=== PATIENT | male | born 1950 | race Caucasian/White ===

== ENCOUNTER → 2018-07-08 | Outpatient (CLI) | payer MEDICARE, BC ==
--- NOTE | 2018-07-08 10:52 | PCVCIMAG ---
EXAM: AORTOILIAC DUPLEX INDICATION: Peripheral arterial disease FINDINGS: AORTA: Suprarenal aorta measures maximum diameter of 3.0 cm. There is not a fusiform infrarenal aortic aneurysm. The infrarenal aorta measures maximum diameter of 2.4 cm. No aortic stenosis. RIGHT COMMON ILIAC ARTERY: Maximum diameter is 1.8 cm. No significant stenosis. RIGHT EXTERNAL ILIAC ARTERY: No significant stenosis. LEFT COMMON ILIAC ARTERY: Maximum diameter is 1.7 cm. No significant stenosis. LEFT EXTERNAL ILIAC ARTERY: No significant stenosis. IMPRESSION: No abdominal aortic aneurysm. No aortoiliac stenosis seen. LOC:OFFICE
--- NOTE | 2018-07-08 13:02 | PCVCIMAG ---
APPROVED REPORT Study performed: 07/08/2018 11:33:13 Exam: Stress Echocardiogram Indication: Hypertension, Hyperlipidemia, Abnormal calcilum score Patient Location: Echo lab Stress Nurse: Yue Ontiveros RN Status: routine Ht: 6 ft 2 in HR: 61 bpm BP: 140/100 mmHg Rhythm: NSR Medical History Medical History: Hyperlipidemia, HTN, Abnormal calcium score Procedure The patient underwent an Exercise Stress Test using the Fercho Protocol. Blood pressure, heart rate, and EKG were monitored. An Echocardiogram was performed by master technician in four stages in quad fashion. At peak stress, four selected images were obtained and placed side by side with resting images for comparison. Stress Test Details Stress Test: Exercise stress testing was performed using a Fercho protocol. HR Resting HR: 61 bpmMax Heart Rate (APMHR): 150 bpm Max HR Achieved: 151 bpmTarget HR (85% APMHR): 127 bpm % of APMHR: 100 Recovery HR: 93 bpm HR response to stress: Normal HR response to stress BP Resting BP: 140/100 mmHg Max BP: 220/110 mmHg Recovery BP: 164/88 mmHg BP response to stress: Normal blood pressure response to stress. ECG Resting ECG: Sinus Rhythm Stress ECG: Sinus Rhythm ST Change: Normal Maximum ST Deviation: 0 mm Arrhythmia: APC's Recovery ECG: Sinus Rhythm Recovery ST Change: Normal Recovery ST Deviation: 0 mm Recovery Arrhythmia: None Clinical Reason for Termination: Maximal effort Exercise duration: 7 min 17 sec Highest Stage Achieved: Stage 3: 3.4 mph at 14% grade. Exercise capacity: 10.10 METs Overall Exercise Capacity for Age: Normal Angina Score: None Stress ECG Conclusion Clinical: Non-ischemic ECG: Non-ischemic Feng Treadmill Score is 7.0 which is Low risk. Pre-Stress Echo The resting Echocardiogram showed normal left ventricular contractility with an estimated Ejection Fraction of about >55%. Normal wall motion in all segments on baseline images. Post-Stress Echo The stress Echocardiogram showed normal left ventricular contractility with an estimated Ejection Fraction of about 55-60%. Normal augmentation of wall motion in all segments on post stress images. Clinical No clinical or ECG evidence for ischemia. Conclusion Clinical Response: Non-ischemic Exercise Capacity: Below Average Stress ECG Response: Non-ischemic Stress Echo Images: Non-ischemic The left ventricle is normal in size and wall thickness in both the rest and stress images. 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 Normal stress echocardiogram with maximal exercise stress. Other Information Study Quality: Technically Difficult <Conclusion> The left ventricle is normal in size and wall thickness in both the rest and stress images. 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 Normal stress echocardiogram with maximal exercise stress.
== END | disposition home or self-care (01) ==
LOC: PCVCIMAG 09:50
PROVIDERS: ATTEND Family Medicine
DX: I73.9 Peripheral vascular disease, unspecified (principal); I10 Essential (primary) hypertension; R93.1 Abnormal findings on diagnostic imaging of heart and coronary circulation; E78.2 Mixed hyperlipidemia
CPT/HCPCS: 93325; 93351; 93978

== ENCOUNTER → 2018-08-19 | Outpatient (CLI) | payer MEDICARE, BC | END | disposition home or self-care (01) | LOC: PCVCCLINIC 13:00 | PROVIDERS: ATTEND Internal Medicine | DX: I71.6 Thoracoabdominal aortic aneurysm, without rupture (principal); R93.1 Abnormal findings on diagnostic imaging of heart and coronary circulation; I10 Essential (primary) hypertension; E78.5 Hyperlipidemia, unspecified; Z87.891 Personal history of nicotine dependence; Z79.82 Long term (current) use of aspirin | CPT/HCPCS: 36415; 80061; 93005; G0463 ==

== ENCOUNTER → 2019-02-24 | Outpatient (CLI) | payer MEDICARE, BC ==
--- NOTE | 2019-02-24 14:48 | PCVCIMAG ---
APPROVED REPORT Study performed: 02/24/2019 10:47:20 EXAM: Comprehensive 2D, Doppler, and color-flow Echocardiogram Patient Location: Echo lab Room #: 2Status: routine BSA: 2.43 HR: 70 bpmBP: 138/74 mmHg Rhythm: NSR Other Information Study Quality: Good Risk Factors: Cardiac Risk Factors: HTN, Hyperlipidemia Indications CAD Hypertension/HDD thoracic aortic aneurysm 2D Dimensions IVSd: 10.65 (7-11mm)LVOT Diam: 24.71 (18-24mm) LVDd: 55.08 mm PWd: 14.17 (7-11mm)Ascending Ao: 42.35 (22-36mm) LVDs: 45.80 (25-40mm) Left Atrium: 39.64 (27-40mm) Aortic Root: 35.47 mm LV Single Plane 4CH: 62.88 % LV Single Plane 2CH: 65.05 % Biplane EF: 62.0 % Volumes Left Atrial Volume (Systole) Single Plane 4CH: 78.21 mLSingle Plane 2CH: 117.03 mL Biplane LA Volume: 100.00 mLLA ESV Index: 41.00 mL/m2 Aortic Valve AoV Peak Alberto.: 1.44 m/s AO Peak Gr.: 8.29 mmHgLVOT Max P.00 mmHg LVOT Max V: 0.71 m/s JV Vmax: 2.35 cm2 AI Vmax: 5.35 m/s AI Antelope: 2.34 m/s2 AI PHT: 662.69 ms Mitral Valve E/A Ratio: 0.6 MV Decel. Time: 225.82 ms MV E Max Alberto.: 0.43 m/s MV A Alberto.: 0.70 m/s TDI E/Lateral E': 3.91E/Medial E': 6.14 Medial E' Alberto.: 0.07 m/s Lateral E' Alberto.: 0.11 m/s Pulmonary Valve PV Peak Alberto.: 1.16 m/sPV Peak Gr.: 5.41 mmHg Pulmonary Vein P Vein S: 0.53 m/sP Vein A: 0.30 m/s P Vein D: 0.37 m/sP Vein A Dur.: 107.3 msec P Vein S/D Ratio: 1.43 Tricuspid Valve TR Peak Alberto.: 2.43 m/s TR Peak Gr.: 23.71 mmHg TV Vmax: 0.59 m/sPA Pressure: 31.00 mmHg Left Ventricle The left ventricle is normal size. There is normal LV segmental wall motion. Mild concentric left ventricular hypertrophy. Left ventricular systolic function is normal. The left ventricular ejection fraction is within the normal range. LVEF is 60-65%. Mild diastolic dysfunction is present (impaired relaxation pattern). Right Ventricle The right ventricle is normal size. The right ventricular systolic function is normal. Atria Left atrium is mildly dilated. The right atrium size is normal. Aortic Valve Aortic valve is trileaflet. Mild aortic regurgitation. There is no aortic valvular stenosis. Mitral Valve The mitral valve is normal in structure. There is no mitral valve regurgitation noted. No evidence of mitral valve stenosis. Tricuspid Valve The tricuspid valve is normal in structure. Trace to mild tricuspid regurgitation with a PA pressure of 30 mmHg. Pulmonic Valve The pulmonary valve is normal in structure. Mild to moderate pulmonic regurgitation. Great Vessels The aortic root is normal in size. Ascending aorta is dilated (4.4cm) Aortic arch is normal in caliber. IVC is normal in size and collapses >50% with inspiration. Pericardium There is no pericardial effusion. There is no pleural effusion. <Conclusion> Left ventricular systolic function is normal. There is normal LV segmental wall motion. LVEF is 60-65%. Mild diastolic dysfunction Left atrium is mildly dilated. Aortic valve is trileaflet. Mild aortic regurgitation, no stenosis The mitral valve is normal in structure. No mitral valve regurgitation. Trace to mild tricuspid regurgitation with a pulmonary artery pressure of 30 mmHg. Ascending aorta is dilated (4.4cm) There is no pericardial effusion.
== END | disposition home or self-care (01) ==
LOC: PCVCIMAG 10:13
PROVIDERS: ATTEND Internal Medicine
DX: I11.9 Hypertensive heart disease without heart failure (principal); I08.8 Other rheumatic multiple valve diseases; E78.5 Hyperlipidemia, unspecified; I71.6 Thoracoabdominal aortic aneurysm, without rupture; Z82.49 Family history of ischemic heart disease and other diseases of the circulatory system; Z87.891 Personal history of nicotine dependence; Z72.89 Other problems related to lifestyle
CPT/HCPCS: 93005; 93306; G0463